=== PATIENT | male | born 1985 ===

== ENCOUNTER 2019-10-12 11:16 | Outpatient (REF) | payer SELFPAY ==
[2019-10-12 14:04] LABS: Anion Gap 11.7 mmol/L (3-11); BUN 13 mg/dL (7-18); CO2 22.3 mmol/L (21.0-32.0); CREATININE 0.77 mg/dL (0.70-1.30); Calcium 8.4 mg/dL (8.5-10.1); Calculated LDL 92 mg/dL (<100); Chloride 106 mmol/L (98-107); Cholesterol 152 mg/dL (<200); Glucose 106 mg/dL (74-106); HDL Cholesterol 36 mg/dL (40-60); Potassium 4.1 mmol/L (3.5-5.1); Sodium 140 mmol/L (136-145); Triglyceride 120 mg/dL (<150)
[2019-10-13 10:18] LABS: PSA, Screening 0.9 ng/mL (0.0-2.5)
== END 2019-10-12 11:36 ==
LOC: NCHCN 11:16
PROVIDERS: PCP Nurse Practitioner Family; Visit Provider Nurse Practitioner Family
DX: M54.5 Low back pain (principal); Z68.34 Body mass index [BMI] 34.0-34.9, adult; Z12.5 Encounter for screening for malignant neoplasm of prostate; Z80.42 Family history of malignant neoplasm of prostate
CPT/HCPCS: 80048; 80061; 84153

== ENCOUNTER 2020-02-14 11:25 | Outpatient (REF) | payer OTHER, SELFPAY ==
[2020-02-14 19:36] LABS: Anion Gap 9.3 mmol/L (3-11); BUN 11 mg/dL (7-18); CO2 23.7 mmol/L (21.0-32.0); CREATININE 0.91 mg/dL (0.70-1.30); Calcium 8.7 mg/dL (8.5-10.1); Chloride 106 mmol/L (98-107); Glucose 103 mg/dL (74-106); Potassium 4.1 mmol/L (3.5-5.1); Sodium 139 mmol/L (136-145)
== END 2020-02-14 11:45 ==
LOC: NCHCN 11:25
PROVIDERS: PCP Nurse Practitioner Family; Visit Provider Physician Assistant
DX: E83.51 Hypocalcemia (principal)
CPT/HCPCS: 80048

== ENCOUNTER 2023-01-27 13:53 | Outpatient (CLI) | payer OTHER, SELFPAY ==
--- NOTE | 2023-01-27 12:02 | DI.RAD_ITS ---
Exam(s) XR LUMBAR SPINE COMPLETE EXAM: XR LUMBAR SPINE COMPLETE CLINICAL HISTORY: Lower Back Pain-M54.5. TECHNIQUE: 2D digital imaging was performed. COMPARISON: No exams were available for comparison FINDINGS: Five views There is transitional anatomy. There is a transitional lumbosacral vertebra. This exhibits a rudime ntary disc space. Other levels appear unremarkable. No fracture or listhesis. No pars defects. Facet joints unremarkable. No scoliosis. No disc space narrowing. SI joints unremarkable. IMPRESSION: No acute osseous findings. However, there is incidentally noted developmental transitional anatomy w ith a transitional lumbosacral vertebra. This places additional stress upon the level above. If the re is clinical concern for disc herniation than MRI would be recommended DATA REPOSITORY: RADIATION DOSE DELIVERED:
== END 2023-01-27 14:13 ==
LOC: DI 13:54
PROVIDERS: PCP Nurse Practitioner Family; Visit Provider Physician Assistant
DX: M43.27 Fusion of spine, lumbosacral region (principal); M54.50 Low back pain, unspecified
CPT/HCPCS: 72110

== ENCOUNTER 2024-06-14 16:35 | Outpatient (REF) | payer OTHER, SELFPAY ==
[2024-06-14 17:00] LABS: Anion Gap 13.5 mmol/L (3-11); BUN 13 mg/dL (7-18); CO2 22.5 mmol/L (21.0-32.0); CREATININE 0.8 mg/dL (0.70-1.30); Calcium 9.2 mg/dL (8.5-10.1); Calculated LDL 90 mg/dL (<100); Chloride 107 mmol/L (98-107); Cholesterol 158 mg/dL (<200); Estimated GFR 115.45 (mL/min/1.73m2); Glucose 98 mg/dL (74-106); HDL Cholesterol 44 mg/dL (40-60); Potassium 4.4 mmol/L (3.5-5.1); Sodium 143 mmol/L (136-145); Triglyceride 121 mg/dL (<150)
[2024-06-14 17:09] LABS: Hemoglobin A1C 5.5 % (<5.7)
== END 2024-06-14 16:36 | disposition home or self-care (01) ==
LOC: NCHCN 16:35
PROVIDERS: Visit Provider Physician Assistant
DX: E66.9 Obesity, unspecified (principal); Z13.1 Encounter for screening for diabetes mellitus
CPT/HCPCS: 80048; 80061; 83036